=== PATIENT | female | born 1995 | race Caucasian/White ===

== ENCOUNTER 2024-08-21 10:53 | Emergency (ER) | payer MEDICAID ==
[~2024-08-21] VITALS: Ht 160 cm; Wt 87.3 kg
[~2024-08-21 10:53] MED LIST: CLIN-214 PO; GUAI120015 PO; IBUP-1986 PO; PANT-47 PO; PSEU-259 PO
[2024-08-21 10:55] VITALS: TEMP 96.8
[2024-08-21] MEDS: ALPRAZolam 0.5mg tablet PO ONE (11:52)
[2024-08-21] MEDS ORDERED: PROP10TA10 PO (11:57)
--- NOTE | 2024-08-21 12:01 | Physician Documentation ---
History of Present Illness ~ Chief Complaint: Anxiety Stated Complaint: MED COMPLICATION Time Seen by MD: 10:59 OK to notify your PCP?: Yes Primary Medical Doctor: N/A Source: patient Mode of Arrival: POV Exam Limitations: no limitations HPI 29-year-old female who is here with mother for anxiety. Patient states she has been able sleep in two days due to her anxiety. She states anxiety just came on out of no where. Her PCP prescribed her Vistaril 50 mg b.i.d. which she has been taking without relief. She is running if that has anything else that she can try. No SI or HI. No hallucinations or delirium. Medication Reconciliation Allergies: Coded Allergies: Penicillins (Verified Allergy, Unknown, DIFFICULTY BREATHING, 08/21/24) aspirin (Verified Allergy, Unknown, 08/21/24) Scheduled Clindamycin HCl (Clindamycin HCl CAPSULE), 3 CAP PO TID Guaifenesin (Mucinex), 1 TAB PO Q12H Pantoprazole Sodium (PROTONIX tablet), 40 MG PO DAILY Pseudoephedrine Hcl (SUDAFED tablet), 1 TAB PO Q4H Scheduled PRN Ibuprofen (Ibuprofen), 1 TAB PO Q8H PRN for chest pain Past Medical History Past Medical History: Anxiety Past Surgical History: no surgical history Alcohol Use: Rarely Drug Use: none Lives with: Family Lives In: Home Occupation: employed Review of Systems All Other Systems at this time: Reviewed and Negative Physical Exam Vital Signs: Temperature: 96.8, Source: Temporal, Heart Rate: 100, Respiratory Rate: 16, BP: 125/94, Pulse Oximetry: 99, Weight: 87.270 Oxygen Flow Rate: 0 Physical Exam General Appearance: Alert, WD/WN. NAD. HEENT: NCAT, PERRL, EOMI. Neck: Supple, trachea midline. Cardiovascular: RRR. No m/r/g. Lungs: CTAB. Breathing unlabored Extremities: Normal inspection. No edema. Skin: Warm/dry, normal color Neurological: Alert and oriented x4, normal gait. Psychiatric: Affect congruent with mood. Progress Results/Orders Results/Orders Completed Orders - BLANCO ALFARO Alprazolam Tablet (Xanax Tablet) (08/21/24 11:45) Medications Received in ER Medications (Trade) Dose Ordered Sig/Olivier Route PRN Reason Start Time Stop Time Status Last Admin Dose Admin (Xanax tablet) 1 mg ONCE ONCE PO 08/21/24 11:45 08/21/24 11:46 DC 08/21/24 11:52 1 MG Vital Signs 08/21/24 10:55 Temp 96.8 Pulse 100 Resp 16 B/P (MAP) 125/94 Pulse Ox 99 O2 Flow Rate 0 Medical Decision Making Differential Dx:Considerations: Include: Alcohol abuse, Anxiety, Bipolar disorder, Conversion disorder, Depression, Encephaloathy, Homicidal, Panic disorder, Personality disorder, Schizophrenia, Substance abuse, Suicidal, Other Departure Time of Disposition: 11:59 Disposition: 01 HOME / SELF CARE / HOMELESS Impression: Primary Impression: Anxiety attack Condition: Stable Discharge Instructions: Panic Attack Additional Instructions: MED SENT TO PHARMACY TO TRY FOR YOUR ANXIETY YOU CAN CONTINUE THE VISTARIL WHICH IS THE MEDICATION THAT YOUR PCP PRESCRIBED Referrals: NO PRIMARY CARE PROVIDER (PCP) Prescriptions Propranolol Hcl* (Inderal*) 10 Mg Tablet 1-2 TAB PO DAILY PRN for anxiety, #20 TAB IGNORE ABOVE INSTRUCTIONS THIS IS SIG BELOW: 1-2PO QD PRN ANXIETY Prov: BLANCO ALFARO 08/21/24 Education Educated: Patient Educated regarding: diagnosis, treatment, need for follow up Signature Scribe Signature: X Attestation: BLANCO YAN Aug 21, 2024 12:01
[2024-08-21 12:04] VITALS: BP 126/89; PULSE 95; RESP 16; O2SAT 99
== END 2024-08-21 12:09 | disposition home or self-care (01) ==
LOC: ER 10:55
DX: F41.0 Panic disorder [episodic paroxysmal anxiety] (principal); Z88.0 Allergy status to penicillin; Z88.6 Allergy status to analgesic agent
CPT/HCPCS: 99283